=== PATIENT | female | born 1965 | race American Indian/Alaskan Native ===

== ENCOUNTER 2018-11-07 07:51 | Outpatient (CLI) | payer OTHER ==
[2018-11-07 08:42] LABS: Alanine Aminotransferase 22 units/L (7-56); Albumin 3.9 g/dL (3.9-5); BUN/Creatinine Ratio 14; Blood Urea Nitrogen 13 mg/dL (7-17); Calcium 9.5 mg/dL (8.4-10.2); Chol/HDL Ratio 3.24 %; HDL Cholesterol 49 mg/dL (40-59); Hemolysis Index 1; LDL Cholesterol,Direct 101 mg/dL (50-130)
--- NOTE | 2018-11-07 09:01 | XRay Report ---
CHEST X-RAY, 2 VIEWS: HISTORY: Asthma COMPARISON: None. FINDINGS: Cardiomediastinal silhouette: Normal cardiac size. Normal mediastinal contours. Lungs: There is mild hyperinflation. Normal lung aeration. No pleural effusions. No pneumothorax. Pulmonary vascularity: Normal. Support hardware: None. Additional findings: None. IMPRESSION: 1. The lungs are mildly hyperinflated which could represent mild COPD. No acute cardiopulmonary proce ss Signer Name: Joel Quick Jr, MD Signed: 11/07/2018 9:56 AM Workstation Name: [id number]
[2018-11-07 09:27] LABS: Hematocrit 35.4 % (30.3-42.9); Hemoglobin 11.2 gm/dl (10.1-14.3); Mean Corpuscular HGB Conc 32 % (30-34); Mean Corpuscular Volume 82 fl (79-97); Platelet Count 181 K/mm3 (140-440); Red Blood Count 4.34 M/mm3 (3.65-5.03); Red Cell Distribution Width 15.2 % (13.2-15.2)
--- NOTE | 2018-11-07 10:36 | Vascular Lab Report ---
DUPLEX DOPPLER LOWER EXTREMITY VEINS, BILATERAL INDICATION: Shortness of breath, Edema, unspecified. TECHNIQUE: Duplex doppler imaging was performed through the veins of both lower extremities using venous leif alexandr and other maneuvers. COMPARISON: No relevant prior imaging study available. FINDINGS: Right Common femoral vein: Negative. Right Superficial femoral vein: Negative. Right Popliteal vein: Negative. Right Calf veins: Negative. Left Common femoral vein: Negative. Left Superficial femoral vein: Negative. Left Popliteal vein: Negative. Left Calf veins: Negative. Additional findings: None.. IMPRESSION: 1. No sonographic evidence for DVT in either lower extremity. Signer Name: Joel Quick Jr, MD Signed: 11/07/2018 11:31 AM Workstation Name: [id number]
== END 2018-11-07 07:52 | disposition home or self-care (01) ==
LOC: VAS 07:51
PROVIDERS: ATTEND Internal Medicine
DX: J45.909 Unspecified asthma, uncomplicated (principal); K21.9 Gastro-esophageal reflux disease without esophagitis; R60.9 Edema, unspecified
CPT/HCPCS: 36415; 71046; 80053; 80061; 82785; 84436; 84443; 85027; 93970

== ENCOUNTER 2018-12-05 14:53 | Outpatient (CLI) | payer OTHER | END 2018-12-05 14:54 | disposition home or self-care (01) | LOC: PF 14:53 | PROVIDERS: ATTEND Internal Medicine | DX: J45.909 Unspecified asthma, uncomplicated (principal); K21.9 Gastro-esophageal reflux disease without esophagitis; R60.9 Edema, unspecified | CPT/HCPCS: 94010; 94727; 94729 ==

== ENCOUNTER → 2018-12-10 | Outpatient (CLI) | payer OTHER | END | disposition home or self-care (01) | LOC: SLR 11:00 | PROVIDERS: ATTEND Internal Medicine | DX: G47.33 Obstructive sleep apnea (adult) (pediatric) (principal); R40.0 Somnolence; R06.83 Snoring; E66.9 Obesity, unspecified | CPT/HCPCS: G0399 ==